=== PATIENT | female | born 1965 | race Caucasian/White ===

== ENCOUNTER → 2022-08-02 | Outpatient (CLI) | payer MEDICARE, OTHER ==
--- NOTE | 2022-08-02 11:10 | Diagnostic Imaging Report ---
Indication: Right knee pain AP, oblique, lateral views the right knee are obtained. No fracture or acute bone abnormality seen. There is mild posterior patellar spurring. There is moderate medial joint space narrowing and osteophyte formation. There is mild lateral joint space narrowing. IMPRESSION: Tricompartmental osteoarthritic change of the right knee with findings most prominent in the medial compartment. No acute abnormality. Dictated by: Dictated on workstation # [id number]
== END ==
LOC: RAD FS 10:41
PROVIDERS: ATTEND Family Medicine
DX: M17.11 Unilateral primary osteoarthritis, right knee (principal)
CPT/HCPCS: 73562